=== PATIENT | male | born 1995 | race Caucasian/White ===

== ENCOUNTER → 2016-06-03 | Outpatient (CLI) | payer BC ==
[~2016-06-03] MED LIST: No meds per pt.
[2016-06-03 12:00] LABS: ASPARTATE AMINO TRANSFERASE 16 U/L (15-37); BLOOD UREA NITROGEN 10 mg/dL (7-18)
== END | disposition home or self-care (01) ==
LOC: STAR 10:20
PROVIDERS: ATTEND Neurological Surgery
DX: Z01.818 Encounter for other preprocedural examination (principal); S06.9X9S Unspecified intracranial injury with loss of consciousness of unspecified duration, sequela; X58.XXXS Exposure to other specified factors, sequela; R79.1 Abnormal coagulation profile
CPT/HCPCS: 36415; 71020; 80053; 85025; 85610; 85730; 93005

== ENCOUNTER 2016-06-29 05:59 | Inpatient (IN) | payer BC ==
[2016-06-03 11:04] VITALS: BP 123/71
[~2016-06-29] VITALS: Ht 168.9 cm; Wt 54.4 kg
[2016-06-29] MEDS ORDERED: LIDOCAINE 1%, 2ML ONE (06:25)
[2016-06-29] MEDS ORDERED: THROMBIN 5,000 UNIT VIAL TP ONE (06:51)
[2016-06-29] MEDS ORDERED: BACITRACIN 50,000 UNIT ONE ×2 (06:51→09:11)
[2016-06-29] MEDS ORDERED: BUPIVACAINE/PF-EPI 0.5% 1:200K ONE (06:51)
[2016-06-29] MEDS ORDERED: BACITRACIN OINT 500U/GM, 15 GM ONE (06:51)
[2016-06-29] MEDS: LACTATED RINGERS 1,000 ML IV SCH (06:53)
[2016-06-29] MEDS ORDERED: FENTANYL PF 250 MCG/5ML ONE (06:55)
[2016-06-29] MEDS ORDERED: LIDOCAINE 1%, 2ML SQ PRN (07:00)
[2016-06-29] MEDS ORDERED: CEFUROXIME 1.5 GM ONE (07:19)
[2016-06-29] MEDS: LEVETIRACETAM 500 MG in SODIUM CHLORIDE 0.9% 100 ML IV SCH ×2 (07:28→23:18)
[2016-06-29] MEDS ORDERED: ACETAMINOPHEN 325 MG TABLET PO PRN (08:00)
[2016-06-29] MEDS ORDERED: LABETALOL 5MG/ML, 20ML IV PRN ×2 (08:00→11:00)
[2016-06-29] MEDS ORDERED: HYDROmorphone 1 MG/ML, 1ML IV PRN (08:00)
[2016-06-29] MEDS ORDERED: ONDANSETRON 2MG/ML, 2ML IVPush PRN (08:00)
[2016-06-29] MEDS ORDERED: hydrALAzine 20 MG/ML, 1ML IV PRN ×2 (08:00→11:00)
[2016-06-29] MEDS ORDERED: OXYcodone 5 MG/5 ML ORAL.SOL UDC PO PRN (08:00)
[2016-06-29] MEDS ORDERED: EPHEDRINE 50 MG/ML, 1ML IVPush PRN (08:00)
[2016-06-29] MEDS ORDERED: FENTANYL PF 100 MCG/2ML IV PRN (08:00)
[2016-06-29] MEDS ORDERED: MEPERIDINE/PF 25MG/0.5ML IVPush PRN (08:00)
[2016-06-29] MEDS ORDERED: METOPROLOL 1 MG/ML, 5ML IV PRN (08:00)
[2016-06-29] MEDS ORDERED: ALBUTEROL SULFATE 2.5 MG/3 ML NPPB PRN (08:00)
[2016-06-29] MEDS ORDERED: THROMBIN 20,000 UNIT VIAL TP ONE ×2 (08:49→08:55)
[2016-06-29] MEDS ORDERED: LEVETIRACETAM 1,000 MG in SODIUM CHLORIDE 0.9% 100 ML IV ONE (09:00)
[2016-06-29] MEDS ORDERED: BISACODYL 10 MG SUPP PR PRN (11:00)
[2016-06-29] MEDS ORDERED: FENTANYL PF 100 MCG/2ML ONE (11:09)
[2016-06-29] MEDS ORDERED: DEXAMETHASONE 4 MG/ML, 1ML ONE (11:41)
[2016-06-29] MEDS ORDERED: PHENYLEPHRINE 10 MG/ML ONE (11:41)
[2016-06-29] MEDS ORDERED: ROCURONIUM 10 MG/ML ONE (11:41)
[2016-06-29] MEDS ORDERED: VASOPRESSIN 20 UNIT/ML, 1ML ONE (11:41)
[2016-06-29] MEDS ORDERED: ONDANSETRON 2MG/ML, 2ML ONE (11:41)
[2016-06-29] MEDS ORDERED: PROPOFOL 10 MG/ML, 20ML ONE (11:41)
[2016-06-29] MEDS: CEFUROXIME 1.5 GM in SODIUM CHLORIDE 0.9% 50 ML IVPB SCH ×2 (14:04→23:45)
[2016-06-29] MEDS: POTASSIUM CHLORIDE 20 MEQ in SODIUM CHLORIDE 0.9% 1,000 ML IV SCH (14:04)
[2016-06-29] MEDS: ONDANSETRON 2MG/ML, 2ML IV PRN (17:09)
[2016-06-29] MEDS: morphine SULFATE 10 MG/ML, 1ML IV PRN (23:51)
[2016-06-30] MEDS: POTASSIUM CHLORIDE 20 MEQ in SODIUM CHLORIDE 0.9% 1,000 ML IV SCH ×2 (02:03→11:12)
[2016-06-30 05:47] LABS: BLOOD UREA NITROGEN 7 mg/dL (7-18); DIFF TOTAL CELLS COUNTED 100 CELL DIFF
[2016-06-30 05:49] VITALS: BP 110/50
[2016-06-30 05:49] LABS: VERIFY COUNTS? YES
[2016-06-30] MEDS: OXYcodone/APAP 5/325MG TABLET PO PRN ×4 (06:06→23:00)
[2016-06-30] MEDS: morphine SULFATE 10 MG/ML, 1ML IV PRN (07:13)
[2016-06-30] MEDS: CEFUROXIME 1.5 GM in SODIUM CHLORIDE 0.9% 50 ML IVPB SCH ×2 (07:51→15:48)
[2016-06-30] MEDS: SENNA/DOCUSATE TABLET PO SCH (09:21)
[2016-06-30] MEDS: LEVETIRACETAM 500 MG in SODIUM CHLORIDE 0.9% 100 ML IV SCH ×2 (11:11→23:00)
[2016-06-30] MEDS: ONDANSETRON 2MG/ML, 2ML IV PRN (11:36)
[2016-07-01] MEDS: CEFUROXIME 1.5 GM in SODIUM CHLORIDE 0.9% 50 ML IVPB SCH ×2 (00:17→12:25)
[2016-07-01] MEDS: OXYcodone/APAP 5/325MG TABLET PO PRN (00:17)
[2016-07-01] MEDS: morphine SULFATE 10 MG/ML, 1ML IV PRN (05:24)
[2016-07-01 05:35] VITALS: BP 108/64
[2016-07-01 09:00] VITALS: BP 127/77
[2016-07-01] MEDS: SENNA/DOCUSATE TABLET PO SCH (09:00)
[2016-07-01] MEDS ORDERED: [UNRECOGNIZED DRUG - REMARK] MC SCH (10:30)
[2016-07-01] MEDS ORDERED: OXYcodone 5 MG/5 ML ORAL.SOL UDC PO PRN ×2 (10:30→14:30)
[2016-07-01] MEDS: ONDANSETRON 2MG/ML, 2ML IV PRN (10:33)
[2016-07-01] MEDS: LEVETIRACETAM 500 MG in SODIUM CHLORIDE 0.9% 100 ML IV SCH ×2 (11:45→23:37)
[2016-07-01] MEDS: OXYcodone 5 MG/5 ML ORAL.SOL UDC PO PRN (12:50)
[2016-07-01 15:22] VITALS: BP 129/84
[2016-07-01 20:10] VITALS: BP 118/66
[2016-07-02 02:03] VITALS: BP 126/79
[2016-07-02] MEDS: OXYcodone 5 MG/5 ML ORAL.SOL UDC PO PRN ×2 (02:14→21:22)
[2016-07-02 06:21] LABS: BLOOD UREA NITROGEN 12 mg/dL (7-18)
[2016-07-02 06:53] VITALS: BP 114/75
[2016-07-02] MEDS: SENNA/DOCUSATE TABLET PO SCH (08:52)
[2016-07-02] MEDS: ONDANSETRON 2MG/ML, 2ML IV PRN (08:53)
[2016-07-02] MEDS: LEVETIRACETAM 500 MG in SODIUM CHLORIDE 0.9% 100 ML IV SCH ×2 (11:38→22:54)
[2016-07-02] MEDS: LACTATED RINGERS 1,000 ML IV SCH (11:39)
[2016-07-02 15:13] VITALS: BP 128/84
[2016-07-02 20:00] VITALS: BP 115/71
[2016-07-03 02:08] VITALS: BP 123/71
[2016-07-03 07:13] VITALS: BP 114/75
[2016-07-03] MEDS: SENNA/DOCUSATE TABLET PO SCH (08:53)
[2016-07-03] MEDS: LEVETIRACETAM 500 MG in SODIUM CHLORIDE 0.9% 100 ML IV SCH (11:04)
[2016-07-03] MEDS ORDERED: MIDAZOLAM 1 MG/ML, 2ML ONE (17:09)
[2016-07-03] MEDS ORDERED: FENTANYL PF 250 MCG/5ML ONE (17:09)
[2016-07-03] MEDS ORDERED: THROMBIN 5,000 UNIT VIAL TP ONE ×2 (17:18→19:40)
[2016-07-03] MEDS ORDERED: BUPIVACAINE/PF-EPI 0.5% 1:200K ONE (17:18)
[2016-07-03] MEDS ORDERED: BACITRACIN 50,000 UNIT ONE (17:18)
[2016-07-03] MEDS ORDERED: MANNITOL PMX 20% 500 ML ONE (17:20)
[2016-07-03] MEDS ORDERED: DEXAMETHASONE 4 MG/ML, 1ML ONE (17:38)
[2016-07-03] MEDS ORDERED: PROPOFOL 10 MG/ML, 20ML ONE (17:38)
[2016-07-03] MEDS ORDERED: KETOROLAC 30 MG/1 ML ONE (17:38)
[2016-07-03] MEDS ORDERED: CEFAZOLIN 1,000 MG ONE (17:38)
[2016-07-03] MEDS ORDERED: FENTANYL PF 100 MCG/2ML IV PRN (18:30)
[2016-07-03] MEDS ORDERED: hydrALAzine 20 MG/ML, 1ML IV PRN (18:30)
[2016-07-03] MEDS ORDERED: OXYcodone 5 MG/5 ML ORAL.SOL UDC PO PRN ×2 (18:30→21:00)
[2016-07-03] MEDS ORDERED: LABETALOL 5MG/ML, 20ML IV PRN (18:30)
[2016-07-03] MEDS ORDERED: HYDROmorphone 1 MG/ML, 1ML IV PRN (18:30)
[2016-07-03] MEDS ORDERED: CEFAZOLIN 1,000 MG IM SCH (18:30)
[2016-07-03] MEDS ORDERED: ONDANSETRON 2MG/ML, 2ML IVPush PRN (18:30)
[2016-07-03] MEDS ORDERED: METOCLOPRAMIDE 5 MG/ML, 2ML IV PRN (18:30)
[2016-07-03] MEDS ORDERED: ACETAMINOPHEN 325 MG TABLET PO PRN (18:30)
[2016-07-03] MEDS ORDERED: THROMBIN 20,000 UNIT VIAL TP ONE ×2 (18:45→19:40)
[2016-07-03] MEDS ORDERED: BACITRACIN OINT 500U/GM, 15 GM ONE (20:08)
[2016-07-03] MEDS ORDERED: ONDANSETRON 2MG/ML, 2ML ONE (21:10)
[2016-07-03] MEDS ORDERED: METOCLOPRAMIDE 5 MG/ML, 2ML ONE (21:17)
[2016-07-03] MEDS ORDERED: FENTANYL PF 100 MCG/2ML ONE (21:27)
[2016-07-03] MEDS: CEFAZOLIN PMX 2GM/50ML 50 ML IVPB SCH (22:32)
[2016-07-04] MEDS ORDERED: LORazepam 2 MG/ML, 1ML ONE (00:34)
[2016-07-04] MEDS: LEVETIRACETAM 500 MG in SODIUM CHLORIDE 0.9% 100 ML IV SCH ×3 (00:40→22:24)
[2016-07-04] MEDS: LORazepam 2 MG/ML, 1ML IVPush PRN (00:50)
[2016-07-04] MEDS ORDERED: LEVETIRACETAM 500 MG in SODIUM CHLORIDE 0.9% 100 ML IV ONE (01:00)
[2016-07-04] MEDS ORDERED: CEFAZOLIN 1,000 MG IV SCH (02:30)
[2016-07-04] MEDS: morphine SULFATE 10 MG/ML, 1ML IV PRN (03:26)
[2016-07-04] MEDS: CEFAZOLIN PMX 2GM/50ML 50 ML IVPB SCH ×2 (05:56→14:54)
[2016-07-04 05:59] LABS: BLOOD UREA NITROGEN 6 mg/dL (7-18)
[2016-07-04] MEDS: MAGNESIUM HYDROXIDE 8%, 30ML UDC PO PRN (11:15)
[2016-07-04] MEDS: SENNA/DOCUSATE TABLET PO SCH (11:15)
[2016-07-05] MEDS: OXYcodone 5 MG/5 ML ORAL.SOL UDC PO PRN (03:09)
[2016-07-05 08:28] LABS: BLOOD UREA NITROGEN 8 mg/dL (7-18)
[2016-07-05] MEDS: SENNA/DOCUSATE TABLET PO SCH ×2 (09:00→16:00)
[2016-07-05] MEDS: LEVETIRACETAM 500 MG TABLET PO SCH ×2 (11:12→21:04)
[2016-07-05] MEDS: OXYcodone/APAP 5/325MG TABLET PO PRN (16:00)
[2016-07-05] MEDS: MAGNESIUM HYDROXIDE 8%, 30ML UDC PO PRN (22:29)
[2016-07-06] MEDS: OXYcodone/APAP 5/325MG TABLET PO PRN ×2 (04:10→20:21)
[2016-07-06] MEDS: morphine SULFATE 10 MG/ML, 1ML IV PRN (05:26)
[2016-07-06] MEDS: LEVETIRACETAM 500 MG TABLET PO SCH ×2 (09:27→20:21)
[2016-07-06] MEDS: LORazepam 2 MG/ML, 1ML IVPush PRN (09:33)
[2016-07-06] MEDS ORDERED: LEVETIRACETAM 1,000 MG in SODIUM CHLORIDE 0.9% 100 ML IV ONE (10:00)
[2016-07-06] MEDS: MAGNESIUM HYDROXIDE 8%, 30ML UDC PO PRN (22:22)
[2016-07-07] MEDS: LEVETIRACETAM 500 MG TABLET PO SCH ×2 (09:14→19:55)
[2016-07-07] MEDS: SENNA/DOCUSATE TABLET PO SCH (09:14)
[2016-07-07] MEDS: OXYcodone/APAP 5/325MG TABLET PO PRN ×2 (13:32→23:16)
[2016-07-07] MEDS: morphine SULFATE 10 MG/ML, 1ML IV PRN (14:33)
[2016-07-08 04:51] LABS: BLOOD UREA NITROGEN 14 mg/dL (7-18)
[2016-07-08] MEDS: SENNA/DOCUSATE TABLET PO SCH (08:23)
[2016-07-08] MEDS: LEVETIRACETAM 500 MG TABLET PO SCH ×2 (08:23→19:55)
[2016-07-08] MEDS: OXYcodone/APAP 5/325MG TABLET PO PRN ×2 (11:25→14:54)
[2016-07-09] MEDS: OXYcodone/APAP 5/325MG TABLET PO PRN ×2 (00:17→11:33)
[2016-07-09] MEDS: LEVETIRACETAM 500 MG TABLET PO SCH ×2 (08:41→21:16)
[2016-07-09] MEDS: SENNA/DOCUSATE TABLET PO SCH (08:52)
[2016-07-09] MEDS: MAGNESIUM HYDROXIDE 8%, 30ML UDC PO PRN (21:25)
[2016-07-10] MEDS: OXYcodone/APAP 5/325MG TABLET PO PRN ×3 (02:32→20:31)
[2016-07-10] MEDS: SENNA/DOCUSATE TABLET PO SCH (08:37)
[2016-07-10] MEDS: LEVETIRACETAM 500 MG TABLET PO SCH ×2 (08:37→20:31)
[2016-07-10 15:24] VITALS: BP 106/71
[2016-07-10 19:57] VITALS: BP 119/62
[2016-07-10] MEDS: DIVALPROEX 500 MG TABLET.DR PO SCH (20:31)
[2016-07-11 01:03] VITALS: BP 110/73
[2016-07-11] MEDS: OXYcodone/APAP 5/325MG TABLET PO PRN (04:38)
[2016-07-11] MEDS: LEVETIRACETAM 500 MG TABLET PO SCH ×2 (08:30→21:00)
[2016-07-11] MEDS: SENNA/DOCUSATE TABLET PO SCH (08:30)
[2016-07-11] MEDS: DIVALPROEX 500 MG TABLET.DR PO SCH (21:00)
[2016-07-12] MEDS: OXYcodone/APAP 5/325MG TABLET PO PRN ×2 (02:00)
[2016-07-12 07:45] VITALS: BP 101/62
[2016-07-12] MEDS: LEVETIRACETAM 500 MG TABLET PO SCH ×2 (09:50→21:36)
[2016-07-12] MEDS: SENNA/DOCUSATE TABLET PO SCH (09:50)
[2016-07-12 14:10] VITALS: BP 104/63
[2016-07-12 20:39] VITALS: BP 105/60
[2016-07-12] MEDS: DIVALPROEX 500 MG TABLET.DR PO SCH (21:36)
[2016-07-13 02:55] VITALS: BP 111/63
[2016-07-13] MEDS: SENNA/DOCUSATE TABLET PO SCH (09:00)
[2016-07-13] MEDS: LEVETIRACETAM 500 MG TABLET PO SCH ×2 (09:09→20:27)
[2016-07-13 09:57] VITALS: BP 106/68
[2016-07-13 19:10] VITALS: BP 104/64
[2016-07-13] MEDS: DIVALPROEX 500 MG TABLET.DR PO SCH (20:27)
[2016-07-14 00:24] VITALS: BP 103/56
[2016-07-14] MEDS: OXYcodone/APAP 5/325MG TABLET PO PRN (05:03)
[2016-07-14 07:20] VITALS: BP 99/58
[2016-07-14] MEDS: LEVETIRACETAM 500 MG TABLET PO SCH (08:00)
[2016-07-14] MEDS: SENNA/DOCUSATE TABLET PO SCH (08:00)
[2016-07-14] MEDS ORDERED: LEVE100020 PO (12:00)
[2016-07-14] MEDS ORDERED: DIVA500T2 PO (12:01)
[2016-07-14] MEDS ORDERED: SENN-31 PO (12:02)
[2016-07-14] MEDS ORDERED: OXYC-302 PO (12:03)
[2016-07-14 12:58] VITALS: BP 95/58
== END 2016-07-14 14:25 | DRG 515 ==
LOC: ORIP 05:59 → CCU 12:58 → 5SO 06-30 23:47 → CCU 07-03 21:40 → 4WST 07-10 13:43
PROVIDERS: ADMIT Neurological Surgery; ATTEND Neurological Surgery
PROC: 0NU00JZ Supplement Skull with Synthetic Substitute, Open Approach (ICD-10-PCS; 2016-06-29)
PROC: 0NP004Z Removal of Internal Fixation Device from Skull, Open Approach (ICD-10-PCS; 2016-06-29)
PROC: 30233N1 Transfusion of Nonautologous Red Blood Cells into Peripheral Vein, Percutaneous Approach (ICD-10-PCS; 2016-06-29)
PROC: 0NU007Z Supplement Skull with Autologous Tissue Substitute, Open Approach (ICD-10-PCS; principal; 2016-06-29 07:30)
PROC: 0WC10ZZ Extirpation of Matter from Cranial Cavity, Open Approach (ICD-10-PCS; 2016-07-02)
DX: M95.2 Other acquired deformity of head (principal); I62.1 Nontraumatic extradural hemorrhage; R47.01 Aphasia; R56.9 Unspecified convulsions; R13.10 Dysphagia, unspecified; Z88.2 Allergy status to sulfonamides; Z91.018 Allergy to other foods
CPT/HCPCS: 36415; 70450; 70551; 80048; 82330; 82803; 82947; 82962; 84132; 84295; 85014; 85018; 85025; 86850; 86900; 86923; 87081; C1713; J0690; J0697; J1100; J1885; J1953; J2250; J2405; J2704; J3010; J3480; J3490; 92523-GN; C1781; J2060; J2270; J2370; J2765; J7030; J7120; P9016